=== PATIENT | male | born 1950 | race Asian ===

== ENCOUNTER 2016-11-03 22:57 | Emergency (ER) | payer OTHER ==
[~2016-11-03] VITALS: Ht 185.4 cm; Wt 88.5 kg
[2016-11-04 01:44] VITALS: BP 162/88; TEMP 98.5
== END 2016-11-04 01:45 | disposition home or self-care (01) ==
LOC: ED 22:57
DX: M54.5 Low back pain (principal); M12.88 Other specific arthropathies, not elsewhere classified, other specified site; M47.898 Other spondylosis, sacral and sacrococcygeal region
CPT/HCPCS: 96372; 99283; J1885